=== PATIENT | female | born 1945 | race Caucasian/White ===

== ENCOUNTER 2016-08-11 08:09 | Outpatient (RCR) | payer MEDICARE, BC ==
[2014-09-03 18:45] VITALS: BP 143/76
[~2016-08-11 08:09] MED LIST: ATIVAN1 MG PO; DOXYCYCLINE 10100 MG PO; ESTRACE1 MG PO; FLOVENT DI50 MCG/Act IH; LEXAPRO20 MG PO; LIPITOR20 MG PO; NEURONTIN300 MG PO; OMEPRAZOLE40 MG PO; SPIRONOLACTONE1 TA1 PO; VIBRAMYCIN100 MG PO; VIVELLE-DO0.0375 MG/ TD; ZYPREXA2.5 MG PO; ZYPREXA5 MG PO
== END 2016-09-08 13:10 ==
LOC: OPPGERO 08:09
DX: F31.9 Bipolar disorder, unspecified (principal)

== ENCOUNTER 2016-09-09 08:18 | Outpatient (RCR) | payer MEDICARE, BC ==
[2014-09-03 18:45] VITALS: BP 143/76
== END 2016-10-06 10:17 ==
LOC: OPPGERO 08:18
DX: F31.9 Bipolar disorder, unspecified (principal)

== ENCOUNTER → 2016-09-21 | Outpatient (CLI) | payer MEDICARE, BC | LOC: RAD 08:53 | DX: R55 Syncope and collapse (principal); I65.23 Occlusion and stenosis of bilateral carotid arteries ==

== ENCOUNTER 2016-10-07 07:00 | Outpatient (RCR) | payer MEDICARE, BC ==
[2014-09-03 18:45] VITALS: BP 143/76
== END 2016-11-06 15:00 ==
LOC: OPPGERO 07:00
DX: F31.9 Bipolar disorder, unspecified (principal)

== ENCOUNTER 2016-11-07 09:00 | Outpatient (RCR) | payer MEDICARE, BC ==
[2014-09-03 18:45] VITALS: BP 143/76
== END 2016-12-04 15:23 ==
LOC: OPPGERO 09:00
DX: F31.9 Bipolar disorder, unspecified (principal)

== ENCOUNTER 2016-12-07 07:49 | Outpatient (RCR) | payer MEDICARE, BC ==
[2014-09-03 18:45] VITALS: BP 143/76
== END 2017-01-06 16:43 ==
LOC: OPPGERO 07:49
DX: F31.9 Bipolar disorder, unspecified (principal)

== ENCOUNTER 2017-01-07 10:52 | Outpatient (RCR) | payer MEDICARE, BC ==
[2014-09-03 18:45] VITALS: BP 143/76
== END 2017-02-05 15:42 ==
LOC: OPPGERO 10:52
DX: F31.9 Bipolar disorder, unspecified (principal)

== ENCOUNTER 2017-02-08 08:17 | Outpatient (RCR) | payer MEDICARE, BC ==
[2014-09-03 18:45] VITALS: BP 143/76
== END 2017-03-08 14:54 ==
LOC: OPPGERO 08:17
DX: F31.9 Bipolar disorder, unspecified (principal)

== ENCOUNTER 2017-03-09 08:34 | Outpatient (RCR) | payer MEDICARE, BC ==
[2014-09-03 18:45] VITALS: BP 143/76
== END 2017-04-08 14:27 ==
LOC: OPPGERO 08:34
DX: F31.9 Bipolar disorder, unspecified (principal)

== ENCOUNTER 2017-04-09 07:41 | Outpatient (RCR) | payer MEDICARE, BC ==
[2014-09-03 18:45] VITALS: BP 143/76
== END 2017-05-07 15:11 ==
LOC: OPPGERO 07:41
DX: F31.9 Bipolar disorder, unspecified (principal)

== ENCOUNTER → 2017-04-21 | Outpatient (CLI) | payer MEDICARE, BC ==
[2014-09-03 18:45] VITALS: BP 143/76
== END ==
LOC: RAD 09:41
DX: Z86.718 Personal history of other venous thrombosis and embolism (principal); Z01.818 Encounter for other preprocedural examination; M25.562 Pain in left knee; M25.561 Pain in right knee; M71.22 Synovial cyst of popliteal space [Baker], left knee

== ENCOUNTER 2017-05-09 09:00 | Outpatient (RCR) | payer MEDICARE, BC ==
[2014-09-03 18:45] VITALS: BP 143/76
== END 2017-06-08 16:32 | disposition still patient (30) ==
LOC: OPPGERO 09:00
DX: F31.9 Bipolar disorder, unspecified (principal)

== ENCOUNTER → 2017-05-20 | Outpatient (CLI) | payer MEDICARE, BC ==
[2014-09-03 18:45] VITALS: BP 143/76
== END ==
LOC: PT 09:57
DX: Z01.818 Encounter for other preprocedural examination (principal); M17.12 Unilateral primary osteoarthritis, left knee

== ENCOUNTER 2017-06-21 07:58 | Outpatient (RCR) | payer MEDICARE, BC ==
[2014-09-03 18:45] VITALS: BP 143/76
== END 2017-07-08 12:50 ==
LOC: OPPGERO 07:58
DX: F31.9 Bipolar disorder, unspecified (principal)

== ENCOUNTER 2017-07-19 10:30 | Outpatient (RCR) | payer MEDICARE, BC ==
[2014-09-03 18:45] VITALS: BP 143/76
== END 2017-07-19 11:00 | disposition home or self-care (01) ==
LOC: PT 10:30
DX: Z47.1 Aftercare following joint replacement surgery (principal); Z96.652 Presence of left artificial knee joint
CPT/HCPCS: G8978-GP; G8979-GP

== ENCOUNTER → 2017-08-04 | Outpatient (CLI) | payer MEDICARE, BC ==
[2014-09-03 18:45] VITALS: BP 143/76
== END ==
LOC: RAD 11:04
DX: Z12.31 Encounter for screening mammogram for malignant neoplasm of breast (principal)
CPT/HCPCS: G0202

== ENCOUNTER 2017-08-10 09:00 | Outpatient (RCR) | payer MEDICARE, BC ==
[2014-09-03 18:45] VITALS: BP 143/76
[2017-09-08] MEDS ORDERED: AMLODIPINE BESYL5 MG PO (11:42)
[2017-09-08] MEDS ORDERED: GOOD NEIGHBOR500 M2 PO (11:42)
[2017-09-08] MEDS ORDERED: ADULT ASPIRIN R81 MG PO (11:43)
[2017-09-08] MEDS ORDERED: PROZAC10 M2 PO (11:44)
[2017-09-08] MEDS ORDERED: PROTONIX TR40 M1 PO (11:44)
[2017-09-08] MEDS ORDERED: MASON NATURAL1000 IU PO (11:45)
[2017-09-08] MEDS ORDERED: FLONASE ALLERG9.9 ML NS (11:46)
[2017-09-08] MEDS ORDERED: [UNRECOGNIZED DRUG - CODE] PO (11:46)
[2017-09-08] MEDS ORDERED: LAMICTAL150 MG PO (11:47)
[2017-09-08] MEDS ORDERED: PHARMASSURE LUTE6 MG PO (11:47)
[2017-09-08] MEDS ORDERED: SEROQUEL 1100 MG/TAB PO (11:49)
[2017-09-08] MEDS ORDERED: FISH OIL 1,2001 EACH PO (11:49)
[2017-09-08] MEDS ORDERED: ZANTAC300 MG PO (11:50)
[2017-09-08] MEDS ORDERED: ALDACTAZIDE 25/1 TA1 PO (11:50)
== END 2017-09-08 15:17 ==
LOC: OPPGERO 09:00
DX: F31.9 Bipolar disorder, unspecified (principal)

== ENCOUNTER → 2017-08-24 | Day surgery (SDC) | payer MEDICARE, BC ==
[2014-09-03 18:45] VITALS: BP 143/76
== END ==
LOC: MSO 09:22 → EDSTATUS 14:27
DX: K21.0 Gastro-esophageal reflux disease with esophagitis (principal); K22.70 Barrett's esophagus without dysplasia; K44.9 Diaphragmatic hernia without obstruction or gangrene; E78.00 Pure hypercholesterolemia, unspecified; I10 Essential (primary) hypertension; F41.9 Anxiety disorder, unspecified; F31.9 Bipolar disorder, unspecified; F42.9 Obsessive-compulsive disorder, unspecified; Z88.8 Allergy status to other drugs, medicaments and biological substances
CPT/HCPCS: 00731; A4649; J2704; J7120

== ENCOUNTER 2017-09-08 07:48 | Emergency (ER) | payer OTHER ==
[~2017-09-08] VITALS: Wt 73.0 kg
[2017-09-08 08:31] LABS: HEMATOCRIT 45.1 % (37.0-47.0); HEMOGLOBIN 14.4 g/dL (12.5-16.0); MEAN CELL VOLUME 91 fl (78-100); MEAN CORPUSCULAR HEMOGLOBIN 29 pg (27-31); MEAN CORPUSCULAR HGB CONC 32 g/dL (33-37); MEAN PLATELET VOLUME 9.4 fl (7.4-10.4); PLATELET COUNT 259 K/mm3 (130-400); RED BLOOD COUNT 4.94 M/mm3 (4.10-5.30); RED CELL DISTRIBUTION WIDTH 14.6 % (11.5-14.5)
[2017-09-08 08:41] LABS: BUN/CREATININE RATIO 26.2 (6.0-26.0); CALCIUM 9.7 mg/dL (8.4-10.2); POTASSIUM 3.8 mmol/L (3.6-5.0); TOTAL BILIRUBIN 0.3 mg/dL (0.2-1.3)
[2017-09-08 08:42] LABS: LYMPHOCYTE 9 % (20-51); MONOCYTE 17 % (3-10); NEUTROPHILS 73 % (42-75)
[2017-09-08 09:21] LABS: URINE APPEARANCE CLEAR; URINE COLOR YELLOW
[2017-09-08 09:22] LABS: PH-URINE 6.5 (5.0 - 8.0); URINE BILIRUBIN NEGATIVE (NEGATIVE); URINE BLOOD TRACE (NEGATIVE); URINE GLUCOSE NEGATIVE (NEGATIVE); URINE KETONE NEGATIVE (NEGATIVE); URINE LEUKOCYTE ESTERASE NEGATIVE (NEGATIVE); URINE NITRATE NEGATIVE (NEGATIVE); URINE PROTEIN(semi-quant) TRACE mg/dL (NEGATIVE); URINE UROBILINOGEN NORMAL (NORMAL); URINE WBC 0-1 /hpf (0-3)
[2017-09-08 11:22] VITALS: BP 139/79
[2017-09-08] MEDS ORDERED: GOOD NEIGHBOR500 M2 PO (11:42)
[2017-09-08] MEDS ORDERED: AMLODIPINE BESYL5 MG PO (11:42)
[2017-09-08] MEDS ORDERED: ADULT ASPIRIN R81 MG PO (11:43)
[2017-09-08] MEDS ORDERED: PROZAC10 M2 PO (11:44)
[2017-09-08] MEDS ORDERED: PROTONIX TR40 M1 PO (11:44)
[2017-09-08] MEDS ORDERED: MASON NATURAL1000 IU PO (11:45)
[2017-09-08] MEDS ORDERED: [UNRECOGNIZED DRUG - CODE] PO (11:46)
[2017-09-08] MEDS ORDERED: FLONASE ALLERG9.9 ML NS (11:46)
[2017-09-08] MEDS ORDERED: PHARMASSURE LUTE6 MG PO (11:47)
[2017-09-08] MEDS ORDERED: LAMICTAL150 MG PO (11:47)
[2017-09-08] MEDS ORDERED: FISH OIL 1,2001 EACH PO (11:49)
[2017-09-08] MEDS ORDERED: SEROQUEL 1100 MG/TAB PO (11:49)
[2017-09-08] MEDS ORDERED: ZANTAC300 MG PO (11:50)
[2017-09-08] MEDS ORDERED: ALDACTAZIDE 25/1 TA1 PO (11:50)
== END 2017-09-08 11:22 | disposition home or self-care (01) ==
LOC: ED 07:48
PROVIDERS: Nurse Practitioner
DX: S01.411A Laceration without foreign body of right cheek and temporomandibular area, initial encounter (principal); V43.52XA Car driver injured in collision with other type car in traffic accident, initial encounter; Y92.410 Unspecified street and highway as the place of occurrence of the external cause; I10 Essential (primary) hypertension; F31.9 Bipolar disorder, unspecified; F41.9 Anxiety disorder, unspecified; F42.9 Obsessive-compulsive disorder, unspecified; K21.9 Gastro-esophageal reflux disease without esophagitis; Z88.8 Allergy status to other drugs, medicaments and biological substances; R22.0 Localized swelling, mass and lump, head
CPT/HCPCS: 90714; A4354; A4550; J2060; Q9967

== ENCOUNTER 2017-09-09 10:14 | Outpatient (RCR) | payer MEDICARE, BC ==
[2017-09-08 11:22] VITALS: BP 139/79
[~2017-09-09 10:14] MED LIST changes: +ADULT ASPIRIN R81 MG PO; +ALDACTAZIDE 25/1 TA1 PO; +AMLODIPINE BESYL5 MG PO; +FISH OIL 1,2001 EACH PO; +FLONASE ALLERG9.9 ML NS; +GOOD NEIGHBOR500 M2 PO; +LAMICTAL150 MG PO; +MASON NATURAL1000 IU PO; +PHARMASSURE LUTE6 MG PO; +PROTONIX TR40 M1 PO; +PROZAC10 M2 PO; +SEROQUEL 1100 MG/TAB PO; +ZANTAC300 MG PO; +[UNRECOGNIZED DRUG - CODE] PO
== END 2017-10-06 14:12 | disposition home or self-care (01) ==
LOC: OPPGERO 10:14
DX: F31.30 Bipolar disorder, current episode depressed, mild or moderate severity, unspecified (principal); Z96.659 Presence of unspecified artificial knee joint; Z88.8 Allergy status to other drugs, medicaments and biological substances

== ENCOUNTER 2017-09-13 08:33 | Emergency (ER) | payer MEDICARE, BC ==
[2017-09-13 09:27] VITALS: BP 157/86
== END 2017-09-13 08:40 | disposition home or self-care (01) ==
LOC: ED 08:33
DX: Z48.02 Encounter for removal of sutures (principal)

== ENCOUNTER 2017-10-07 09:49 | Outpatient (RCR) | payer MEDICARE, BC | END 2017-11-05 11:22 | LOC: OPPGERO 09:49 | DX: F31.30 Bipolar disorder, current episode depressed, mild or moderate severity, unspecified (principal); E78.00 Pure hypercholesterolemia, unspecified; I10 Essential (primary) hypertension; Z88.8 Allergy status to other drugs, medicaments and biological substances; Z79.82 Long term (current) use of aspirin ==

== ENCOUNTER → 2017-12-28 | Outpatient (CLI) | payer MEDICARE, BC | LOC: MAMMO 10:28 | DX: Z13.820 Encounter for screening for osteoporosis (principal); M85.88 Other specified disorders of bone density and structure, other site; M85.852 Other specified disorders of bone density and structure, left thigh; M85.851 Other specified disorders of bone density and structure, right thigh ==

== ENCOUNTER 2018-08-04 14:02 | Outpatient (RCR) | payer MEDICARE, BC | END 2018-08-04 14:30 | disposition home or self-care (01) | LOC: PT 14:02 | DX: M75.21 Bicipital tendinitis, right shoulder (principal) | CPT/HCPCS: G8985-GP ==

== ENCOUNTER 2018-12-08 11:00 | Outpatient (RCR) | payer MEDICARE, BC | END 2018-12-11 | disposition home or self-care (01) | LOC: PT | DX: Z47.89 Encounter for other orthopedic aftercare (principal) | CPT/HCPCS: G8985-GP ==

== ENCOUNTER 2019-01-19 11:00 | Outpatient (RCR) | payer MEDICARE, BC | END 2019-03-12 | disposition still patient (30) | LOC: PT | DX: M25.611 Stiffness of right shoulder, not elsewhere classified (principal); Z98.890 Other specified postprocedural states ==

== ENCOUNTER → 2019-07-11 | Outpatient (CLI) | payer MEDICARE, BC | LOC: MAMMO 14:06 | DX: Z12.31 Encounter for screening mammogram for malignant neoplasm of breast (principal); N64.89 Other specified disorders of breast ==

== ENCOUNTER → 2019-07-17 | Outpatient (CLI) | payer MEDICARE, BC | LOC: MAMMO 07:00 → RAD 07:00 | DX: N63.22 Unspecified lump in the left breast, upper inner quadrant (principal) ==

== ENCOUNTER → 2019-12-05 | Outpatient (CLI) | payer MEDICARE, BC | LOC: RAD 08:12 → VAS 08:12 → RAD 08:30 | DX: I65.23 Occlusion and stenosis of bilateral carotid arteries (principal); R41.0 Disorientation, unspecified; R47.81 Slurred speech ==

== ENCOUNTER → 2020-02-06 | Outpatient (CLI) | payer MEDICARE, BC | LOC: MAMMO 08:28 | DX: Z13.820 Encounter for screening for osteoporosis (principal); M85.80 Other specified disorders of bone density and structure, unspecified site; Z78.0 Asymptomatic menopausal state ==

== ENCOUNTER 2020-05-06 11:15 | Outpatient (RCR) | payer MEDICARE, BC | END 2020-05-06 12:00 | LOC: PT 11:15 | DX: M50.90 Cervical disc disorder, unspecified, unspecified cervical region (principal); M54.81 Occipital neuralgia ==

== ENCOUNTER → 2020-12-12 | Day surgery (SDC) | payer MEDICARE, BC | END | disposition home or self-care (01) | LOC: MSO 08:54 | DX: K21.00 Gastro-esophageal reflux disease with esophagitis, without bleeding (principal); K44.9 Diaphragmatic hernia without obstruction or gangrene; K22.70 Barrett's esophagus without dysplasia; I10 Essential (primary) hypertension; Z95.0 Presence of cardiac pacemaker; Z85.828 Personal history of other malignant neoplasm of skin; Z98.890 Other specified postprocedural states | CPT/HCPCS: 00731; J2704; J7120 ==

== ENCOUNTER → 2021-04-30 | Day surgery (SDC) | payer MEDICARE, BC | LOC: MSO 07:03 | DX: H25.812 Combined forms of age-related cataract, left eye (principal); M19.90 Unspecified osteoarthritis, unspecified site; I49.9 Cardiac arrhythmia, unspecified; I10 Essential (primary) hypertension; J44.9 Chronic obstructive pulmonary disease, unspecified; E78.00 Pure hypercholesterolemia, unspecified; G43.909 Migraine, unspecified, not intractable, without status migrainosus; K21.9 Gastro-esophageal reflux disease without esophagitis; G47.33 Obstructive sleep apnea (adult) (pediatric); Z90.710 Acquired absence of both cervix and uterus; Z79.82 Long term (current) use of aspirin; Z79.899 Other long term (current) drug therapy; Z99.89 Dependence on other enabling machines and devices | CPT/HCPCS: 00142; J0171; J2250; V2632 ==

== ENCOUNTER → 2021-06-04 | Day surgery (SDC) | payer MEDICARE, BC | END | disposition home or self-care (01) | LOC: MSO 10:15 | DX: H25.9 Unspecified age-related cataract (principal); H35.30 Unspecified macular degeneration; H04.121 Dry eye syndrome of right lacrimal gland; I10 Essential (primary) hypertension; G47.33 Obstructive sleep apnea (adult) (pediatric); G25.81 Restless legs syndrome; F31.9 Bipolar disorder, unspecified; K21.9 Gastro-esophageal reflux disease without esophagitis; E78.00 Pure hypercholesterolemia, unspecified; M19.90 Unspecified osteoarthritis, unspecified site; Z79.82 Long term (current) use of aspirin; Z95.0 Presence of cardiac pacemaker; Z79.899 Other long term (current) drug therapy | CPT/HCPCS: 00142; J0171; J2250; V2632 ==

== ENCOUNTER 2021-10-01 15:51 | Emergency (ER) | payer MEDICARE, BC ==
[~2021-10-01] VITALS: Ht 157.5 cm; Wt 80.9 kg
[2021-10-01] MEDS ORDERED: TRAMADOL 50 MG TAB PO (17:51)
[2021-10-01 17:55] VITALS: BP 159/86
== END 2021-10-01 17:55 | disposition home or self-care (01) ==
LOC: ED 15:51
DX: S51.812A Laceration without foreign body of left forearm, initial encounter (principal); S80.01XA Contusion of right knee, initial encounter; W01.0XXA Fall on same level from slipping, tripping and stumbling without subsequent striking against object, initial encounter; Y92.009 Unspecified place in unspecified non-institutional (private) residence as the place of occurrence of the external cause

== ENCOUNTER → 2021-10-22 | Outpatient (CLI) | payer MEDICARE, BC ==
[~2021-10-22] MED LIST changes: +TRAMADOL 50 MG TAB PO
== END ==
LOC: VAS 08:44 → RAD 09:00
DX: M79.604 Pain in right leg (principal)

== ENCOUNTER 2022-01-14 08:42 | Outpatient (RCR) | payer MEDICARE, BC | END 2022-02-05 | disposition home or self-care (01) | LOC: PT | DX: L03.113 Cellulitis of right upper limb (principal); S61.451S Open bite of right hand, sequela; W55.01XS Bitten by cat, sequela; M25.631 Stiffness of right wrist, not elsewhere classified ==

== ENCOUNTER → 2022-02-12 | Outpatient (CLI) | payer MEDICARE, BC | LOC: RAD 08:59 → MAMMO 10:00 | DX: M81.0 Age-related osteoporosis without current pathological fracture (principal); Z78.0 Asymptomatic menopausal state ==

== ENCOUNTER → 2022-02-12 | Outpatient (CLI) | payer MEDICARE, BC | LOC: MAMMO 08:49 | DX: Z12.31 Encounter for screening mammogram for malignant neoplasm of breast (principal) ==

== ENCOUNTER → 2022-04-01 | Outpatient (CLI) | payer MEDICARE, BC | LOC: VAS 12:51 → RAD 13:00 → VAS 13:00 | DX: M79.89 Other specified soft tissue disorders (principal); Z86.718 Personal history of other venous thrombosis and embolism ==

== ENCOUNTER 2022-06-11 09:51 | Outpatient (RCR) | payer MEDICARE, BC | END 2022-07-08 | disposition still patient (30) | LOC: PT | DX: Z96.651 Presence of right artificial knee joint (principal) ==

== ENCOUNTER 2023-06-09 08:00 | Outpatient (RCR) | payer MEDICARE, BC | END 2023-07-08 | disposition home or self-care (01) | LOC: OT | DX: G56.03 Carpal tunnel syndrome, bilateral upper limbs (principal); G56.22 Lesion of ulnar nerve, left upper limb ==

== ENCOUNTER → 2024-03-27 | Outpatient (CLI) | payer MEDICARE, BC | LOC: MAMMO 13:23 | DX: Z12.31 Encounter for screening mammogram for malignant neoplasm of breast (principal) ==

== ENCOUNTER → 2024-05-08 | Outpatient (CLI) | payer MEDICARE, BC | LOC: RAD 10:17 | DX: M16.0 Bilateral primary osteoarthritis of hip (principal); M47.816 Spondylosis without myelopathy or radiculopathy, lumbar region ==

== ENCOUNTER → 2024-09-06 | Outpatient (CLI) | payer BC, MEDICARE ==
[~2024-09-06] MED LIST changes: +Iohexol 300 - 100 ML VIAL IV ONE; +NS 100 ML IV SCH
[2024-09-06 12:00] LABS: EOS # 0.09 K/mm3 (0.04-0.40); EOS % 1.6 % (1.0-5.0); HEMATOCRIT 45.9 % (37.0-47.0); HEMOGLOBIN 14.8 g/dL (12.5-16.0); LYMPH# 1.43 K/mm3 (1.50-4.00); MEAN CELL VOLUME 88 fl (78-100); MEAN CORPUSCULAR HEMOGLOBIN 28 pg (27-31); MEAN CORPUSCULAR HGB CONC 32 g/dL (33-37); MEAN PLATELET VOLUME 9.5 fl (7.4-10.4); MONO # 0.66 K/mm3 (0.20-0.80); NEU # 3.55 K/mm3 (1.40-6.50); PLATELET COUNT 253 K/mm3 (130-400); RED BLOOD COUNT 5.23 M/mm3 (4.10-5.30); RED CELL DISTRIBUTION WIDTH 14.4 % (11.5-14.5); WHITE BLOOD COUNT 5.7 K/mm3 (4.8-10.8)
[2024-09-06 12:07] LABS: ALBUMIN 4.3 g/dL (3.4-4.8)
[2024-09-06 12:09] LABS: TOTAL PROTEIN 7.2 g/dL (6.2-8.1)
[2024-09-06 12:11] LABS: TOTAL BILIRUBIN 0.6 mg/dL (0.2-1.2)
== END ==
LOC: RAD 11:41
PROVIDERS: Surgery
DX: K44.9 Diaphragmatic hernia without obstruction or gangrene (principal); Z98.890 Other specified postprocedural states; Z85.038 Personal history of other malignant neoplasm of large intestine
CPT/HCPCS: Q9967

== ENCOUNTER → 2024-09-07 | Outpatient (CLI) | payer BC, MEDICARE ==
[~2024-09-07] MED LIST changes: -Iohexol 300 - 100 ML VIAL IV ONE; -NS 100 ML IV SCH
== END ==
LOC: MAMMO 08:59 → RAD 08:59 → MAMMO 14:00
DX: Z13.820 Encounter for screening for osteoporosis (principal); M85.852 Other specified disorders of bone density and structure, left thigh; Z85.038 Personal history of other malignant neoplasm of large intestine